=== PATIENT | female | born 1945 | race Caucasian/White ===

== ENCOUNTER 2019-09-18 19:36 | Observation (INO) | payer MEDICARE ==
[~2019-09-18] VITALS: Ht 144.8 cm; Wt 46.0 kg
[~2019-09-18 19:36] MED LIST: AZO1OS EACHEYE; EST1T PO; LISI-600 PO; XAL0.005OS OP
[2019-09-18 19:59] LABS: BASOPHILS # (AUTO) 0.1 X10'3 (0-0.2); BASOPHILS % (AUTO) 1.2 % (0-1); EOSINOPHILS # (AUTO) 0.1 X10'3 (0-0.9); EOSINOPHILS % (AUTO) 1.4 % (0-6); HEMOGLOBIN 13.2 g/dl (12.0-16.0); LYMPHOCYTES # (AUTO) 2.1 X10'3 (1.1-4.8); LYMPHOCYTES % (AUTO) 31.8 % (21-51); MEAN CORPUSCULAR HEMOGLOBIN 33.4 PG (27.0-31.0); MEAN CORPUSCULAR HGB CONC 34.8 g/dL (33.0-36.5); MEAN PLATELET VOLUME 7.1 FL (7.4-10.4); MONOCYTES # (AUTO) 0.6 X10'3 (0-0.9); MONOCYTES % (AUTO) 8.5 % (2-12); NEUTROPHILS # (AUTO) 3.8 X10'3 (1.8-7.7); NEUTROPHILS % (AUTO) 57.1 % (42-75); PLATELET COUNT 344 X10'3 (140-440); RED BLOOD COUNT 3.96 X10'6 (4.20-5.60); RED CELL DISTRIBUTION WIDTH 13.9 % (11.5-14.5); WHITE BLOOD COUNT 6.6 X10'3 (4.5-11.0)
[2019-09-18 20:20] LABS: ALANINE AMINOTRANSFERASE 24 U/L (12-78); ALBUMIN 4.1 G/DL (3.4-5.0); ALBUMIN/GLOBULIN RATIO 1.2 (1.1-1.5); ALKALINE PHOSPHATASE 83 IU/L (46-116); ANION GAP 10 (8-16); ASPARTATE AMINO TRANSFERASE 18 U/L (10-37); BILIRUBIN,TOTAL 0.2 MG/DL (0.1-1.0); BLOOD UREA NITROGEN 20 MG/DL (7-18); CALCIUM 9.3 MG/DL (8.5-10.1); CHLORIDE 100 MMOL/L (99-107); CREATININE 0.69 MG/DL (0.40-0.90); GLUCOSE 103 MG/DL (70-104); POTASSIUM 3.2 MMOL/L (3.5-5.1); SODIUM 137 MMOL/L (135-145); TOTAL CARBON DIOXIDE 27.1 MMOL/L (24-32); TOTAL PROTEIN 7.4 G/DL (6.4-8.2); eGFR 84 ML/MIN
[2019-09-18] MEDS ORDERED: potassium Cl 20 mEq SR tablet PO STA (20:34)
[2019-09-18 20:47] LABS: D-DIMER 0.27 MG/L FEU (0-0.50)
[2019-09-18] MEDS ORDERED: POTASSIUM BICARB 20meq eff tab 20 MEQ TABLET.EFF PO STA (21:19)
[2019-09-18] MEDS ORDERED: CARV3.1244 PO (21:40)
[2019-09-18] MEDS ORDERED: HYDR12.55 PO (21:40)
[2019-09-18] MEDS ORDERED: normal saline 1000ml 1,000 ML IV SCH (22:34)
[2019-09-18] MEDS ORDERED: morphine 2 MG/ML inj. syringe IV PRN (22:35)
[2019-09-18] MEDS ORDERED: mag hydrox/Alum hydrox/simeth 30ml oral suspension PO PRN (22:35)
[2019-09-18] MEDS ORDERED: magnesium 4gm in 100ml NS 100 ML IV PRN (22:35)
[2019-09-18] MEDS ORDERED: potassium CL 10mEq/100ml bag 100 ML IV PRN ×2 (22:35)
[2019-09-18] MEDS ORDERED: magnesium Cl slow-release 64mg tablet PO PRN (22:35)
[2019-09-18] MEDS ORDERED: ondansetron/PF 4mg/2ml inj IV PRN (22:35)
[2019-09-18] MEDS ORDERED: potassium Cl 20 mEq SR tablet PO PRN ×2 (22:35)
[2019-09-18] MEDS ORDERED: magnesium 2GM in 50ml NS 50 ML IV PRN (22:35)
[2019-09-18] MEDS ORDERED: acetaminophen 325mg tablet PO PRN (22:35)
[2019-09-18] MEDS ORDERED: nitroGLYCERIN 0.4mg SUBLingual tab SL PRN (22:40)
[2019-09-18] MEDS ORDERED: metoprolol tartrate 1mg/ml inj IV PRN (22:40)
[2019-09-18] MEDS ORDERED: aminophylline 250mg/10ml inj. IV PRN (22:40)
[2019-09-18] MEDS ORDERED: regadenoson 0.4mg/5ml syringe IV ONE (22:40)
[2019-09-18 23:52] VITALS: BP 137/78
[2019-09-19] VITALS (10 sets, daily range): BP systolic 129–150; BP diastolic 58–76
--- NOTE | 2019-09-19 01:07 | NUR ---
Patient in room [facility]. I have received report from RICKEY Corley RN and had the opportunity to ask questions and assume patient care. Addendum: 09/19/19 at 0108 by [employer] RN Amended: Links added.
[2019-09-19 01:57] LABS: ALBUMIN 3.4 G/DL (3.4-5.0); ANION GAP 8 (8-16); BLOOD UREA NITROGEN 18 MG/DL (7-18); BUN/CREATININE RATIO 32.7 (6.6-38.0); CALCIUM 8.4 MG/DL (8.5-10.1); CHLORIDE 103 MMOL/L (99-107); CHOL/HDL RATIO 2.4 (0.00-4.99); CHOLESTEROL 189 MG/DL (0-200); CREATININE 0.55 MG/DL (0.40-0.90); GLUCOSE 94 MG/DL (70-104); HDL CHOLESTEROL 78 MG/DL (35-60); LDL CHOLESTEROL 97 MG/DL (50-100); POTASSIUM 3.5 MMOL/L (3.5-5.1); SODIUM 138 MMOL/L (135-145); TOTAL CARBON DIOXIDE 27.1 MMOL/L (24-32); TRIGLYCERIDES 32 MG/DL (20-135); eGFR > 90 ML/MIN
[2019-09-19 01:58] LABS: BASOPHILS # (AUTO) 0.1 X10'3 (0-0.2); EOSINOPHILS # (AUTO) 0.1 X10'3 (0-0.9); EOSINOPHILS % (AUTO) 1.8 % (0-6); HEMOGLOBIN 11.9 g/dl (12.0-16.0); LYMPHOCYTES # (AUTO) 2.1 X10'3 (1.1-4.8); LYMPHOCYTES % (AUTO) 35.2 % (21-51); MEAN CORPUSCULAR HEMOGLOBIN 33.4 PG (27.0-31.0); MEAN CORPUSCULAR VOLUME 95.6 FL (78-98); MONOCYTES # (AUTO) 0.5 X10'3 (0-0.9); MONOCYTES % (AUTO) 7.8 % (2-12); NEUTROPHILS # (AUTO) 3.2 X10'3 (1.8-7.7); NEUTROPHILS % (AUTO) 54.2 % (42-75); PLATELET COUNT 292 X10'3 (140-440); RED BLOOD COUNT 3.55 X10'6 (4.20-5.60); RED CELL DISTRIBUTION WIDTH 14.4 % (11.5-14.5); WHITE BLOOD COUNT 5.9 X10'3 (4.5-11.0)
--- NOTE | 2019-09-19 06:08 | NUR ---
Problems reprioritized. Patient report given, questions answered & plan of care reviewed with YUSRA Matute. Addendum: 09/19/19 at 0609 by [employer] RN Amended: Links added.
[2019-09-19] MEDS ORDERED: K and/or MAG REPLACEMENT MC SCH (08:00)
--- NOTE | 2019-09-19 11:33 | NUR ---
Pt. concerned about home eye drops, MD Walsh aware med. req. needs to be addressed.
[2019-09-19] MEDS ORDERED: dorzolamide 2% ophthalmic drops 10ml EACHEYE SCH (13:00)
--- NOTE | 2019-09-19 13:54 | NUR ---
PAGER ID: [phone] MESSAGE: [email or web address] [id number] Pt. states she has not seen you today. Her is here they are worried about his sx in AM. Can you come see them. Juju [phone]
[2019-09-19] MEDS ORDERED: BRINZOLAMIDE EACHEYE SCH (13:55)
--- NOTE | 2019-09-19 15:40 | NUR ---
Pt. discharged in a stable condition. No c/o chest pain this AM. No new medication prescribed. reviewed discharge paperwork with pt. She is aware to follow up with PCP and [facility] within a week. She has been provided contact information for Delores's office. Tele DC'd cleaned and returned. IV DC'd bandage applied, no s/sx bleeding noted. Student escorted pt. out with spouse to spouse's private vehicle with all of her belongings.
[2019-09-19] MEDS ORDERED: carVEDilol 3.125mg tablet PO SCH (20:00)
[2019-09-19] MEDS ORDERED: lisinopril 20mg tablet PO SCH (21:00)
[2019-09-19] MEDS ORDERED: latanoprost 0.005% 2.5ml ophthalmic drops EACHEYE SCH (21:00)
--- NOTE | 2019-09-21 15:40 | NUR ---
Case management DC follow up: spoke to pt via telephone: reports, "feeling great". Denies cp, emergent/acute general pain, SOB, resp distress, NV, dizziness, diaphoresis, abd pain, AGARWAL. remains afebrile. follow up w/PCP/Dr Tipton 11/10/2019, Dr Estrella office waiting for pt records, will call pt back to schedule. verbalizes understanding of meds and why prescribed, no ase noted. understands s/s that would warrant 9-11/Er visit for evaluation. needs met, questions answered at DC, no further questions at this time.
== END 2019-09-19 15:42 | disposition home or self-care (01) ==
LOC: ER 19:37 → ED HOLD 22:46 → EDBEDREQ 22:47 → SUR 3N 22:59
PROVIDERS: ADMIT Internal Medicine; ATTEND Family Medicine
DX: I24.9 Acute ischemic heart disease, unspecified (principal); I10 Essential (primary) hypertension; E87.6 Hypokalemia; R06.02 Shortness of breath; Z90.710 Acquired absence of both cervix and uterus; Z90.49 Acquired absence of other specified parts of digestive tract; Z79.899 Other long term (current) drug therapy
CPT/HCPCS: 36415; 71045; 78452; 80048; 80053; 80061; 83735; 84484; 85025; 85379; 87081; 93005; 93017; 93306; 99284; A9500; G0378; J2785; J7030